=== PATIENT | female | born 1985 | race Caucasian/White ===

== ENCOUNTER 2020-02-18 16:09 | Emergency (ER) | payer SELFPAY ==
[2020-02-18 16:17] VITALS: BP 124/81; PULSE 88; RESP 18; TEMP 36.7; O2SAT 100; BMI 20.1
--- NOTE | 2020-02-18 16:32 | ED_ITS ---
Entered by Arlin Jaquez, acting as scribe for Tonya Muniz MD, [facility] [place] Feb 18, 2020 16:09 HPI - Chest Pain General: Chief Complaint: Chest Pain Stated Complaint: Chest pains/SOB Time Seen by Provider: 02/18/20 16:30 Source: patient Mode of arrival: ambulatory Limitations: no limitations History of Present Illness: HPI narrative: 34-year-old female patient with no past medical history but who smokes cigarettes and is on oral contraceptive pills presents to the emergency department with chest pain and shortness of breath. Symptoms started earlier today and the sensation she had was that of an elephant sitting on her chest. No prior cardiac history complaint: chest pain and other (SOB) Onset (ago): week(s) (1-2 weeks ago) Timing of current episode: constant Prior episodes: Yes Onset: during rest Pain location: substernal Pain radiation: none Severity: mild Quality: heaviness Relieving factors: nothing Exacerbating factors: exertion and palpation Associated symptoms: Reports dyspnea and palpitations Treatment prior to arrival: none Review of Systems General: Reports: 10 or more systems reviewed and unremarkable except in HPI and below Card: Reports: palpitations Resp: Reports: shortness of breath PFSH ED PFSH: Social History Smoking and tobacco status: current every day smoker Physical Exam Const: COMMON NORMALS: no apparent distress, average body habitus, oriented x3, no limitations, healthy appearing, alert and well nourished HENMT: COMMON NORMALS: normocephalic, head/scalp atraumatic and moist oral mucous membranes HEAD & SCALP: normocephalic and atraumatic Eye: COMMON NORMALS: PERRL, EOMs intact bilaterally, conjunctivae normal and no scleral icterus CONJUNCTIVA: Yes conjunctivae normal PUPIL: Yes PERRL Neck/C-Spine: COMMON NORMALS: full ROM, supple, no meningeal signs, no JVD and no carotid bruits Chest: COMMONS NORMALS: inspection of chest normal and palpation of chest normal Resp: COMMON NORMALS: normal respiratory effort, no retractions, no use of accessory muscles, clear to auscultation bilaterally and percussion normal AUSCULTATION: clear to auscultation bilaterally PERCUSSION: percussion normal Cardio: COMMON NORMALS: no JVD, regular rate, regular rhythm, S1 normal heart sound, S2 normal heart sound, no gallops, no clicks, no murmurs, no rub and peripheral pulses 2+ throughout RATE: regular rate RHYTHM: regular rhythm HEART SOUNDS: S1 normal and S2 normal PERIPHERAL PULSES: pulses 2+ throughout GI: COMMON NORMALS: normal to inspection, nondistended, normoactive bowel sounds, soft to palpation, non-tender, no hepatosplenomegaly, no masses and no bruits PALPATION: Yes soft and Yes no hepatosplenomegaly : COMMON NORMALS: Yes no CVA tenderness BLADDER/KIDNEY EXAM: Yes no CVA tenderness Back/Pelvis: COMMON NORMALS: no CVA tenderness Extremity: COMMON NORMALS: normal to inspection, full ROM, normal capillary refill, no calf tenderness and no pedal edema Neuro: COMMON NORMALS: oriented x3 SENSORIUM/ORIENTATION: Yes alert MENINGEAL SIGNS: Yes no meningeal signs Skin: COMMON NORMALS: no rashes or lesions noted, no wounds, skin turgor normal, no jaundice, no petechiae and no mottling GENERAL SKIN EXAM: no rashes or lesions noted and turgor normal Course Reevaluation(s): Reevaluation #1: Discussed her lab and imaging findings with her. Negative for acute findings. We will discharge her home with no new orders. She voiced understanding and she is in agreement with the plan. Time: 21:27 Vital Signs: Vital signs: Vital Signs Temperature 98.1 F 02/18/20 16:17 Pulse Rate 68 02/18/20 21:54 Respiratory Rate 17 02/18/20 21:54 Blood Pressure 106/74 02/18/20 21:54 Pulse Oximetry 98 02/18/20 21:54 MDM - Chest Pain MDM Narrative: Medical decision making narrative: 35-year-old female patient who presents emergency department with chest pain or shortness of breath. She has no cardiac risk factors, however she smokes and is on oral contraceptive pills so she was screened for a pulmonary embolism. D-dimer was negative. Troponin was negative x2, imaging was negative and she is therefore discharged home with no new orders and to follow-up with her primary care provider. Lab Data: Labs: Lab Results 02/18/20 02/18/20 02/18/20 Range/Units 16:56 16:56 16:56 WBC 11.1 H (4.0-10.0) 10^3/ uL RBC 4.47 (4.1-5.3) 10^6/u L Hgb 14.2 (11.5-15.3) g/dL Hct 42.1 (37.0-47.0) % MCV 94.2 (81-99) fL MCH 31.8 (28.0-34.0) pg MCHC 33.7 (30.0-36.0) g/dL RDW 12.0 L (12.1-15.1) % Plt Count 226 (130-400) 10^3/c mm MPV 10.8 H (7.4-10.4) fL Neut % (Auto) 60.2 % Lymph % (Auto) 30.2 % Taylor % (Auto) 7.5 % Eos % (Auto) 1.4 % Baso % (Auto) 0.4 % Neut # (Auto) 6.7 (1.8-7.7) 10^3/u L Lymph # (Auto) 3.3 (0.8-4.8) 10^3/u L Taylor # (Auto) 0.8 (0.2-0.9) 10^3/u L Eos # (Auto) 0.2 (0.0-0.8) 10^3/u L Baso # (Auto) 0.0 (0.0-0.1) 10^3/u L Nucleated RBC % (a uto) 0 % Nucleated RBCs # 0.0 /100WBC D-Dimer <= 0.27 (0-0.59) ug/mIFE U Sodium 143 (136-145) mmol/L Potassium 3.6 (3.5-5.1) mmol/L Chloride 106 (98-107) mmol/L Carbon Dioxide 24 (22-29) mmol/L Anion Gap 16.6 (5-19) BUN 7 (6-20) mg/dL Creatinine 0.7 (0.5-0.9) mg/dL GFR Calculation 94.7 (90-130) mL/min Glucose 88 (65-115) mg/dL Calculated Osmolal ity 291 (285-295) mOsm/k g Calcium 10.2 (8.5-10.5) mg/dL Total Bilirubin 0.5 (0.15-1.2) mg/dL AST 16 (0-32) U/L ALT 12 (0-33) U/L Alkaline Phosphata se 30 L (35-105) IU/L Troponin T Baselin e (0-10) ng/mL Troponin T 120 Min thu (0-10) ng/mL Delta Troponin T (0-10) ABS# Total Protein 6.9 (6.6-8.7) g/dL Albumin 4.7 (3.5-5.2) g/dL Globulin 2.2 (1.3-4.6) g/dL Lipase 35 (13-60) U/L 02/18/20 02/18/20 Range/Units 16:56 19:05 WBC (4.0-10.0) 10^3/ uL RBC (4.1-5.3) 10^6/u L Hgb (11.5-15.3) g/dL Hct (37.0-47.0) % MCV (81-99) fL MCH (28.0-34.0) pg MCHC (30.0-36.0) g/dL RDW (12.1-15.1) % Plt Count (130-400) 10^3/c mm MPV (7.4-10.4) fL Neut % (Auto) % Lymph % (Auto) % Taylor % (Auto) % Eos % (Auto) % Baso % (Auto) % Neut # (Auto) (1.8-7.7) 10^3/u L Lymph # (Auto) (0.8-4.8) 10^3/u L Taylor # (Auto) (0.2-0.9) 10^3/u L Eos # (Auto) (0.0-0.8) 10^3/u L Baso # (Auto) (0.0-0.1) 10^3/u L Nucleated RBC % (a uto) % Nucleated RBCs # /100WBC D-Dimer (0-0.59) ug/mIFE U Sodium (136-145) mmol/L Potassium (3.5-5.1) mmol/L Chloride (98-107) mmol/L Carbon Dioxide (22-29) mmol/L Anion Gap (5-19) BUN (6-20) mg/dL Creatinine (0.5-0.9) mg/dL GFR Calculation (90-130) mL/min Glucose (65-115) mg/dL Calculated Osmolal ity (285-295) mOsm/k g Calcium (8.5-10.5) mg/dL Total Bilirubin (0.15-1.2) mg/dL AST (0-32) U/L ALT (0-33) U/L Alkaline Phosphata se (35-105) IU/L Troponin T Baselin e 6 (0-10) ng/mL Troponin T 120 Min thu 6.00 (0-10) ng/mL Delta Troponin T 0 (0-10) ABS# Total Protein (6.6-8.7) g/dL Albumin (3.5-5.2) g/dL Globulin (1.3-4.6) g/dL Lipase (13-60) U/L EKG Data^: EKG 1: Attestation: I personally reviewed and interpreted this EKG as follows: EKG interpretation date: 02/18/20 EKG interpretation time: 16:26 Prior EKG tracings: not available for review Interpretation: Normal sinus rhythm. Heart rate [address] changes. EKG 2: Attestation: I personally reviewed and interpreted this EKG as follows: EKG interpretation date: 02/18/20 EKG interpretation time: 18:25 Prior EKG tracings: available for review Interpretation: Unchanged from earlier today Discharge Plan Discharge Patient Disposition: Home, Self-Care Clinical Impression: Shortness of breath Chest pain Qualifiers: Chest pain type: other chest pain Qualified Code(s): R07.89 - Other chest pain Condition: Stable Prescriptions: Continued Multiple Vitamins Tablet 1 tab PO DAILY RF: 0 Ventolin HFA 90 mcg/actuation Hfa Aerosol Inhaler 2 puff INHALATION Q4H PRN (Reason: Shortness Of Breath) RF: 0 Nikki 0.35 mg tablet 0.35 mg PO DAILY RF: 0 Discharge Orders: Discharge Order (Routine); Ordered 02/18/20 Ordered By: Tonya Muniz Referrals: Gregg Butler DO [Family Provider] - Lucretia Krishna FNP [Primary Care Provider] - 1-3 days Patient Instructions: Chest Pain (ED) Activity Restrictions/Additional Instructions: Return for any new or worsening symptoms. Follow-up with your primary care provider within 3 days. Discharge Date/Time: 02/18/20 21:56 Coding Level of Care Code ED Pyridine Operator for Chg Fwd The documentation recorded by the Leonid olson Bridget Annette, accurately reflects the service I personally performed and the decisions made by , Tonya Muniz MD, [facility] [place] Feb 18, 2020 16:09
--- NOTE | 2020-02-18 16:43 | ECG_ITS ---
Measurements Intervals [place] Rate: 82 P: 72 [place]: 143 QRS: 76 QRSD: 89 T: 41 QT: 364 QTc: 426 SINUS RHYTHM POSSIBLE RIGHT VENTRICULAR CONDUCTION DELAY [RSR (QR) IN V1/V2] NONSPECIFIC ST & T-WAVE ABNORMALITY No previous ECG available for comparison Electronically Signed On 02-19-2020 8:03:42 CDT by Iram Aguilar [email or web address]
[2020-02-18 17:04] LABS: Basophils % 0.4 %; Eosinophils # 0.2 10^3/uL (0.0-0.8); Eosinophils % 1.4 %; Hematocrit 42.1 % (37.0-47.0); Hemoglobin 14.2 g/dL (11.5-15.3); Lymphocytes # 3.3 10^3/uL (0.8-4.8); Lymphocytes % 30.2 %; Mean Corpuscular HGB Conc 33.7 g/dL (30.0-36.0); Mean Corpuscular Hemoglobin 31.8 pg (28.0-34.0); Mean Corpuscular Volume 94.2 fL (81-99); Mean Platelet Volume 10.8 fL (7.4-10.4); Monocytes # 0.8 10^3/uL (0.2-0.9); Monocytes % 7.5 %; Neutrophils # 6.7 10^3/uL (1.8-7.7); Neutrophils % 60.2 %; Nucleated Red Blood Cells % 0 %; Platelet Count 226 10^3/cmm (130-400); Red Blood Count 4.47 10^6/uL (4.1-5.3); White Blood Count 11.1 10^3/uL (4.0-10.0)
[2020-02-18] MEDS: aspirin 81 mg Chew Tablet 324 MG PO (17:09)
[2020-02-18 17:18] LABS: D Dimer <= 0.27 ug/mIFEU (0-0.59)
[2020-02-18 17:25] LABS: Troponin(5th) Baseline 6 ng/mL (0-10)
[2020-02-18 17:29] LABS: Alanine Aminotransferase 12 U/L (0-33); Albumin Level 4.7 g/dL (3.5-5.2); Alkaline Phosphatase 30 IU/L (35-105); Anion Gap 16.6 (5-19); Aspartate Amino Transferase 16 U/L (0-32); Blood Urea Nitrogen 7 mg/dL (6-20); Calcium 10.2 mg/dL (8.5-10.5); Carbon Dioxide 24 mmol/L (22-29); Chloride 106 mmol/L (98-107); Globulin 2.2 g/dL (1.3-4.6); Glomerular Filtration Rate 94.7 mL/min (90-130); Glucose 88 mg/dL (65-115); Lipase 35 U/L (13-60); Osmolality Calculated 291 mOsm/kg (285-295); Potassium 3.6 mmol/L (3.5-5.1); Sodium 143 mmol/L (136-145); Total Bilirubin 0.5 mg/dL (0.15-1.2); Total Protein 6.9 g/dL (6.6-8.7)
--- NOTE | 2020-02-18 17:37 | XRR_ITS ---
PROCEDURE INFORMATION: Exam: XR Chest, 2 Views Exam date and time: 02/18/2020 6:05 PM Age: 34 years old Clinical indication: Pain; Shortness of breath; Chest pressure; Additional info: Chest pain TECHNIQUE: Imaging protocol: XR of the chest Views: 2 views. COMPARISON: No relevant prior studies available. FINDINGS: Lungs: Unremarkable. No consolidation. Pleural space: Unremarkable. No pleural effusion. No pneumothorax. Heart/Mediastinum: Unremarkable. No cardiomegaly. Bones/joints: Unremarkable. XR/XR chest 2V* [id number] IMPRESSION: No acute findings.
--- NOTE | 2020-02-18 18:43 | ECG_ITS ---
Measurements Intervals [place] Rate: 65 P: 50 MT: 158 QRS: 69 QRSD: 85 T: 43 QT: 402 QTc: 418 SINUS RHYTHM POSSIBLE RIGHT VENTRICULAR CONDUCTION DELAY [RSR (QR) IN V1/V2] No previous ECG available for comparison Electronically Signed On 02-19-2020 8:10:50 CDT by Iram Aguilar [email or web address]
[2020-02-18 19:28] LABS: Troponin 5 2HR Delta 0 ABS# (0-10)
[2020-02-18 21:54] VITALS: BP 106/74; PULSE 68; RESP 17; O2SAT 98
== END 2020-02-18 21:56 | disposition home or self-care (01) ==
PROVIDERS: Emergency Provider Family Medicine; Family Provider Family Medicine; PCP Registered Nurse
DX: R06.02 Shortness of breath (principal); R07.9 Chest pain, unspecified; Z79.3 Long term (current) use of hormonal contraceptives; F17.210 Nicotine dependence, cigarettes, uncomplicated
CPT/HCPCS: 12345; 36415; 71046; 80053; 83690; 84484; 85025; 85378; 93005; 93010; 94002; 94799; 99281

== ENCOUNTER → 2025-09-20 09:44 | Outpatient (BNVA) | payer OTHER, SELFPAY | PROVIDERS: Family Provider Family Medicine; PCP Registered Nurse; Visit Provider Obstetrics & Gynecology | DX: N93.9 Abnormal uterine and vaginal bleeding, unspecified (principal) | CPT/HCPCS: 83001; 83002; 84146 ==

== ENCOUNTER → 2025-09-26 10:46 | Outpatient (BNVA) | payer OTHER, SELFPAY | PROVIDERS: Family Provider Family Medicine; PCP Registered Nurse; Visit Provider Obstetrics & Gynecology | DX: N93.9 Abnormal uterine and vaginal bleeding, unspecified (principal) | CPT/HCPCS: 76856 ==